=== PATIENT | male | born 1980 | race Caucasian/White ===

== ENCOUNTER 2017-03-01 16:14 | Emergency (ER) | payer OTHER ==
[~2017-03-01 16:14] MED LIST: KETO10TA PO
--- NOTE | 2017-03-01 17:02 | PHYS DOC ---
Past History Past Medical History: Diabetes, Hypertension, Other Past Surgical History: Other Smoking: Non-smoker Alcohol Use: None Drug Use: None Adult General Chief Complaint Chief Complaint: HEADACHE HPI HPI Patient is a 37 year old male who presents with complaint of high blood pressure for the past 3 days and headache for the past 2-3 months. Patient states that his primary concern is his blood pressure. Patient is currently on medication but is unable to identify the name of his medication. Patient states that he has been taking it regularly. Patient states that his headache symptoms have been ongoing and have not responded to [id number] medication. Patient has not seen a specialist for his headaches. Patient denies any chest pain, nausea, vomiting, vision loss, difficulty with speech or swallowing, or unilateral weakness associated with this headache. Patient currently rates his pain as 8 out of 10. Patient denies light sensitivity at this time. Review of Systems Review of Systems Constitutional: Denies fever or chills [] Eyes: Denies change in visual acuity, redness, or eye pain [] HENT: Denies nasal congestion or sore throat [] Respiratory: Denies cough or shortness of breath [] Cardiovascular: Denies chest pain or edema [] GI: Denies abdominal pain, nausea, vomiting, bloody stools or diarrhea [] : Denies dysuria or hematuria [] Musculoskeletal: Denies back pain or joint pain [] Integument: Denies rash or skin lesions [] Neurologic: Headache, denies focal weakness or sensory changes [] Current Medications Current Medications Current Medications Medications (Trade) Dose Ordered Sig/Mark Start Time Stop Time Status Last Admin Dose Admin Diphenhydramine HCl (Benadryl) 25 mg 1X ONCE 03/01/17 17:15 03/01/17 17:16 Fentanyl Citrate (Fentanyl 2ml Vial) 50 mcg PRN Q15MIN PRN 03/01/17 17:15 03/02/17 17:14 Metoclopramide HCl (Reglan) 10 mg 1X ONCE 03/01/17 17:15 03/01/17 17:16 Allergies Allergies Allergies Coded Allergies Type Severity Reaction Last Updated Verified No Known Drug Allergies 02/24/14 No Physical Exam Physical Exam Constitutional: Alert, obese, afebrile, appears in mild discomfort. [] HENT: Normocephalic, atraumatic, bilateral external ears normal, oropharynx moist, no oral exudates, nose normal. [] Eyes: PERRLA, EOMI, conjunctiva normal, no discharge. [] Neck: Normal range of motion, no tenderness, supple, no stridor. [] Cardiovascular:Heart rate regular rhythm, no murmur [] Lungs & Thorax: Bilateral breath sounds clear to auscultation [] Abdomen: Bowel sounds normal, soft, no tenderness, no masses, no pulsatile masses. [] Skin: Warm, dry, no erythema, no rash. [] Back: No tenderness, no CVA tenderness. [] Extremities: No tenderness, no cyanosis, no clubbing, ROM intact, no edema. [] Neurologic: Alert and oriented X 3, normal motor function, normal sensory function, no focal deficits noted. [] EKG EKG Interpreted by me: Heart rate 83, sinus rhythm, normal intervals, normal axis, no acute ST/T-wave abnormalities present [] Radiology/Procedures Radiology/Procedures Not performed [] Course & Med Decision Making Course & Med Decision Making Pertinent Labs and Imaging studies reviewed. (See chart for details) Patient was given Reglan, Benadryl and fentanyl. Patient was given 5 mg of oral lisinopril in the emergency department. Patient's lab work pending at time of sign out. Care of patient was signed over to Dr. Abbott at 1809. Report received from Dr Garcia at 1800 shift change. Pt presented initially with markedly elevate BP which has improved to 140's systolic. Labs unremarkable, pt continues to be asymptomatic. I discussed PCP follow up on Saturday for BP recheck and medication titration/adjustment if indicated. Also discussed PCP referral for outpatient workup chronic headaches. Pt expressed agreement/understanding with treatment plan. Dragon Disclaimer Dragon Disclaimer This chart was dictated in whole or in part using Voice Recognition software in a busy, high-work load, and often noisy Emergency Department environment. It may contain unintended and wholly unrecognized errors or omissions. Departure Time of Disposition: 18:47 Disposition: HOME, SELF-CARE Diagnosis: HTN uncontrolled, chronic headache Condition: IMPROVED Patient Instructions: General Headache Without Cause, [id number], Hypertension Referrals: GREGORY SIMPSON (PCP) Additional Instructions: Activity as tolerated. Continue current medications. OTC tylenol/ibuprofen as needed. Follow up with your doctor Saturday for recheck of BP and to discuss outpatient Neurology referral for chronic headaches. Return to ED with new or changing symptoms. Departure Departure: Impression: Primary Impression: Hypertension Additional Impression: Headache Disposition: HOME, SELF-CARE Condition: IMPROVED Referrals: GREGORY SIMPSON (PCP) Patient Instructions: General Headache Without Cause, [id number], Hypertension Additional Instructions: Activity as tolerated. Continue current medications. OTC tylenol/ibuprofen as needed. Follow up with your doctor Saturday for recheck of BP and to discuss outpatient Neurology referral for chronic headaches. Return to ED with new or changing symptoms. Problem Qualifiers Primary Impression: Hypertension Hypertension type: essential hypertension Qualified Codes: I10 - Essential ( primary) hypertension Additional Impression: Headache Headache type: unspecified Headache chronicity pattern: episodic headache Intractability: not intractable Qualified Codes: R51 - Headache LEDY GARCIA MD March 01, 2017 17:02 GUNJAN ABBOTT DO March 01, 2017 18:49
[2017-03-01] MEDS ORDERED: hydrALAZINE 20 MG/ML VIAL. IV ONE (17:15)
[2017-03-01] MEDS ORDERED: METOCLOPRAMIDE HCL 10 MG/2 ML VIAL. IV ONE (17:15)
[2017-03-01] MEDS ORDERED: fentaNYL PF 100 MCG/2 ML VIAL IV PRN (17:15)
[2017-03-01] MEDS ORDERED: diphenhydrAMINE 50 MG/ML VIAL IVP ONE (17:15)
[2017-03-01] MEDS ORDERED: LISINOPRIL 5 MG TABLET. ONE (17:47)
[2017-03-01] MEDS ORDERED: LISINOPRIL 5 MG TABLET. PO ONE (18:10)
[2017-03-01 18:12] LABS: BASO # 0.1 x10^3/uL (0.0-0.2); BASO % 1 % (0-3); EOS # 0.4 x10^3/uL (0.0-0.7); EOS % 5 % (0-3); HEMATOCRIT 44.8 % (39.0-53.0); HEMOGLOBIN 15.2 g/dL (13.0-17.5); LYMPH # 2.1 x10^3/uL (1.0-4.8); LYMPH % 26 % (24-48); MEAN CORPUSCULAR HEMOGLOBIN 29 pg (25-35); MEAN CORPUSCULAR HGB CONC 34 g/dL (31-37); MEAN CORPUSCULAR VOLUME 86 fL (79-100); MONO # 0.5 x10^3/uL (0.0-1.1); MONO % 6 % (0-9); NEUT % 63 % (31-73); PLATELET COUNT 163 x10^3/uL (140-400); RED BLOOD COUNT 5.21 x10^6/uL (4.30-5.70); RED CELL DISTRIBUTION WIDTH 13.5 % (11.5-14.5)
[2017-03-01 18:25] LABS: ALBUMIN 3.9 g/dL (3.4-5.0); ALBUMIN/GLOBULIN RATIO 1.1 (1.0-1.7); CALCIUM 8.8 mg/dL (8.5-10.1); CREATININE 1.1 mg/dL (0.7-1.3); GFR 75.3; POTASSIUM 3.6 mmol/L (3.5-5.1); TOTAL BILIRUBIN 0.5 mg/dL (0.2-1.0); TOTAL PROTEIN 7.3 g/dL (6.4-8.2)
[2017-03-01 19:00] VITALS: BP 145/92
--- NOTE | 2017-03-01 20:43 | EKG ---
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
== END 2017-03-01 19:02 | disposition home or self-care (01) ==
LOC: ER 16:14
DX: I10 Essential (primary) hypertension (principal); G89.29 Other chronic pain; R51 Headache; E10.65 Type 1 diabetes mellitus with hyperglycemia
CPT/HCPCS: 36415; 80053; 83735; 85027; 93005; 96374; 96375; 99285; J1200; J2765; J3010

== ENCOUNTER 2017-05-05 22:54 | Emergency (ER) | payer OTHER ==
[~2017-05-05] VITALS: Ht 182.9 cm; Wt 130.3 kg
[2017-05-05] MEDS ORDERED: NITROGLYCERIN SUBLINGUAL 0.4 MG BOTTLE OF 25. SL PRN (23:30)
--- NOTE | 2017-05-05 23:30 | PHYS DOC ---
Past History Past Medical History: Diabetes, GERD, Hypertension, Hypothyroid Past Surgical History: Tonsillectomy, Other Smoking: Non-smoker Alcohol Use: None Drug Use: Marijuana Adult General Chief Complaint Chief Complaint: chest pain HPI HPI Patient is a 37 year old male who presents with complaint of right-sided chest pain. Patient states that his symptoms have been constant over the past 2 days. Patient describes the pain as a pressure sensation. Patient rates his pain currently as 5 out of 10. Patient states that it remains in his right chest and states that occasionally he gets sharp pains in this area. Patient has history of hypertension. Patient's blood pressure at triage was noted to be significantly elevated. Patient states that he is compliant with his medication at home. Patient states that he has had multiple episodes of chest pain over the past several months. Patient states that the pain usually resolves after a few hours. Patient states that his current pain has not resolved since onset 2 days ago which is abnormal. Patient has mild nausea but no vomiting. Patient denies any exacerbating factors for his pain. Review of Systems Review of Systems Constitutional: Denies fever or chills [] Eyes: Denies change in visual acuity, redness, or eye pain [] HENT: Denies nasal congestion or sore throat [] Respiratory: Denies cough or shortness of breath [] Cardiovascular: Chest pain, denies edema [] GI: Mild nausea, denies abdominal pain, vomiting, bloody stools or diarrhea [] : Denies dysuria or hematuria [] Musculoskeletal: Denies back pain or joint pain [] Integument: Denies rash or skin lesions [] Neurologic: Denies headache, focal weakness or sensory changes [] Current Medications Current Medications Current Medications Medications (Trade) Dose Ordered Sig/Mark Start Time Stop Time Status Last Admin Dose Admin Aspirin (Children'S Aspirin) 324 mg 1X ONCE 05/05/17 23:30 05/05/17 23:31 UNV Nitroglycerin (Nitrostat) 0.4 mg PRN Q5MIN PRN 05/05/17 23:30 05/06/17 23:29 UNV Sodium Chloride 1,000 ml @ 1,000 mls/hr Q1H 05/05/17 23:25 05/06/17 00:24 UNV Allergies Allergies Allergies Coded Allergies Type Severity Reaction Last Updated Verified No Known Drug Allergies 4/30/14 No Physical Exam Physical Exam Constitutional: Alert, afebrile, appears in mild to moderate discomfort. [] HENT: Normocephalic, atraumatic, bilateral external ears normal, oropharynx moist, no oral exudates, nose normal. [] Eyes: PERRLA, EOMI, conjunctiva normal, no discharge. [] Neck: Normal range of motion, no tenderness, supple, no stridor. [] Cardiovascular:Heart rate regular rhythm, no murmur [] Lungs & Thorax: Bilateral breath sounds clear to auscultation [] Abdomen: Bowel sounds normal, soft, no tenderness, no masses, no pulsatile masses. [] Skin: Warm, dry, no erythema, no rash. [] Back: No tenderness, no CVA tenderness. [] Extremities: No tenderness, no cyanosis, no clubbing, ROM intact, no edema. [] Neurologic: Alert and oriented X 3, normal motor function, normal sensory function, no focal deficits noted. [] Current Patient Data Vital Signs Vital Signs Date Time Temp Pulse Resp B/P (MAP) Pulse Ox O2 Delivery O2 Flow Rate FiO2 05/05/17 23:44 101 153/104 05/05/17 22:55 98.3 18 94 Room Air EKG EKG Interpreted by me: Heart rate 78, sinus rhythm, leftward axis, no acute ST/T- wave abnormalities present [] Radiology/Procedures Radiology/Procedures One view AP chest x-ray interpreted by me: No infiltrate, no effusions, normal cardiac silhouette [] Course & Med Decision Making Course & Med Decision Making Pertinent Labs and Imaging studies reviewed. (See chart for details) Patient was treated with nitroglycerin and aspirin in the emergency department. Patient's blood pressure improved to 147/87. On reevaluation, patient states he is still having chest pressure at this time. Patient's initial lab work is nondiagnostic for etiology since pain. The patient will require admission to the hospital for further workup of chest pain and rule out myocardial ischemia. Initially when I told the patient the plan of care he was in agreement. For this reason I spoke with Dr. Clinton who initially accepted care patient in hospital. Upon reevaluation in the emergency department after I spoke with Dr. Clinton, I informed the patient that his testing was negative. He asked me how long he would need to stay in the hospital for rule out. I told him that he would need to stay overnight to have repeat cardiac enzyme testing as well as cardiology consult. The patient stated "I can't be here that long. I'm not going to stay." I asked the patient why and he stated "I have kids at home." I explained to the patient that he had undifferentiated chest pain with acute coronary syndrome as part of his differential diagnosis. If this were not diagnosed and patient's pain symptoms progress to heart attack this could be potentially catastrophic to the patient. The patient voiced understanding and stated that he did not want to stay in the hospital. He did acknowledge potential risk of or disability as a result of his choice rated the patient signed out AGAINST MEDICAL ADVICE. Patient left the emergency department in stable condition. The patient left before being able to receive any discharge paperwork. Dragon Disclaimer Dragon Disclaimer This chart was dictated in whole or in part using Voice Recognition software in a busy, high-work load, and often noisy Emergency Department environment. It may contain unintended and wholly unrecognized errors or omissions. Departure Departure: Impression: Primary Impression: Chest pain Additional Impression: Hypertension Disposition: 07 AGAINST MEDICAL ADVICE Condition: STABLE Referrals: GREGORY SIMPSON (PCP) Problem Qualifiers Primary Impression: Chest pain Chest pain type: unspecified Qualified Codes: R07.9 - Chest pain, unspecified Additional Impression: Hypertension Hypertension type: essential hypertension Qualified Codes: I10 - Essential ( primary) hypertension LEDY LUCAS MD May 05, 2017 23:30
[2017-05-05] MEDS ORDERED: ASPIRIN 81 MG TAB.CHEW PO ONE (23:45)
[2017-05-05] MEDS ORDERED: IV NORMAL SALINE 1,000ML 1,000 ML IV SCH (23:45)
--- NOTE | 2017-05-05 23:47 | EKG ---
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
[2017-05-05 23:49] LABS: BASO # 0.1 x10^3/uL (0.0-0.2); BASO % 1 % (0-3); EOS # 0.5 x10^3/uL (0.0-0.7); EOS % 5 % (0-3); HEMATOCRIT 42.5 % (39.0-53.0); HEMOGLOBIN 14.5 g/dL (13.0-17.5); LYMPH # 2.5 x10^3/uL (1.0-4.8); LYMPH % 29 % (24-48); MEAN CORPUSCULAR HEMOGLOBIN 29 pg (25-35); MEAN CORPUSCULAR HGB CONC 34 g/dL (31-37); MEAN CORPUSCULAR VOLUME 85 fL (79-100); MONO # 0.6 x10^3/uL (0.0-1.1); MONO % 8 % (0-9); NEUT # 4.9 x10^3uL (1.8-7.7); NEUT % 58 % (31-73); PLATELET COUNT 151 x10^3/uL (140-400); RED CELL DISTRIBUTION WIDTH 13.9 % (11.5-14.5); WHITE BLOOD COUNT 8.6 x10^3/uL (4.0-11.0)
[2017-05-06 00:08] LABS: ALBUMIN 3.6 g/dL (3.4-5.0); ALK PHOS 190 U/L (46-116); ALT (SGPT) 50 U/L (16-63); ANION GAP 8 (6-14); AST (SGOT) 22 U/L (15-37); BLOOD UREA NITROGEN 15 mg/dL (8-26); BUN/CREATININE RATIO 13 (6-20); CALCIUM 8.5 mg/dL (8.5-10.1); CARBON DIOXIDE 28 mmol/L (21-32); CHLORIDE 106 mmol/L (98-107); CREATINE KINASE 30 U/L (39-308); CREATININE 1.2 mg/dL (0.7-1.3); GFR 68.1; GLUCOSE 112 mg/dL (70-99); MAGNESIUM 2.2 mg/dL (1.8-2.4); POTASSIUM 3.6 mmol/L (3.5-5.1); SODIUM 142 mmol/L (136-145); TOTAL BILIRUBIN 0.5 mg/dL (0.2-1.0); TOTAL PROTEIN 7.1 g/dL (6.4-8.2)
[2017-05-06] MEDS ORDERED: IV NORMAL SALINE 1,000ML 1,000 ML IV SCH (00:29)
[2017-05-06] MEDS ORDERED: hydrALAZINE 20 MG/ML VIAL. IV PRN (00:30)
[2017-05-06] MEDS ORDERED: fentaNYL PF 100 MCG/2 ML VIAL IV PRN (00:30)
[2017-05-06] MEDS ORDERED: ONDANSETRON PF 4 MG/2 ML VIAL. IV PRN (00:30)
[2017-05-06 00:40] VITALS: BP 147/84
--- NOTE | 2017-05-06 07:18 | RAD ---
Portable chest, 05/05/2017: History: Chest pain Comparison is made to a study from 02/24/2014. The heart size and pulmonary vascularity are normal. There is minimal linear scarring in the right base. No acute infiltrate is seen. There is no evidence of pleural fluid. IMPRESSION: No acute cardiopulmonary abnormality is detected.
== END 2017-05-06 00:40 | disposition left against medical advice (07) ==
LOC: ER 22:54
DX: I10 Essential (primary) hypertension (principal); E11.9 Type 2 diabetes mellitus without complications; E03.9 Hypothyroidism, unspecified; K21.9 Gastro-esophageal reflux disease without esophagitis; F12.10 Cannabis abuse, uncomplicated
CPT/HCPCS: 36415; 71010; 80053; 82553; 83735; 83880; 84484; 85027; 93005; 96360; 99285-25; J7030

== ENCOUNTER 2019-01-05 12:47 | Emergency (ER) | payer OTHER ==
[~2019-01-05] VITALS: Ht 182.9 cm; Wt 141.5 kg
--- NOTE | 2019-01-05 13:23 | PHYS DOC ---
Past History Past Medical History: Diabetes, GERD, Hypertension, Hypothyroid Past Surgical History: Tonsillectomy, Other Smoking: Non-smoker Alcohol Use: None Drug Use: Marijuana Adult General Chief Complaint Chief Complaint: bloody urine HPI HPI Patient is a 39 year old male who presents with complaining of bloody urine. Patient states he has had episodes of hematuria with dark yellow colored urine since last night without dysuria, abdominal pain, nausea and vomiting, fever and chills. Patient states he had another episode of hematuria couple days ago that resolved spontaneously. Patient denies history of kidney stone, easy bruising and bleeding, dysuria and urinary frequency. Patient state hematuria getting better this morning. Review of Systems Review of Systems Constitutional: Denies fever or chills [] Eyes: Denies change in visual acuity, redness, or eye pain [] HENT: Denies nasal congestion or sore throat [] Respiratory: Denies cough or shortness of breath [] Cardiovascular: No additional information not addressed in HPI [] GI: Denies abdominal pain, nausea, vomiting, bloody stools or diarrhea [] : Denies dysuria, reports hematuria [] Musculoskeletal: Denies back pain or joint pain [] Integument: Denies rash or skin lesions [] Neurologic: Denies headache, focal weakness or sensory changes [] Endocrine: Denies polyuria or polydipsia [] All other systems were reviewed and found to be within normal limits, except as documented in this note. Allergies Allergies Allergies Coded Allergies Type Severity Reaction Last Updated Verified No Known Drug Allergies 02/24/14 No Physical Exam Physical Exam Constitutional: Well developed, well nourished, no acute distress, non-toxic appearance, morbidly obese. [] HENT: Normocephalic, atraumatic Eyes: PERRLA, EOMI, conjunctiva normal, no discharge. [] Neck: Normal range of motion, no tenderness, supple, no stridor. [] Cardiovascular:Heart rate regular rhythm, no murmur [] Lungs & Thorax: Bilateral breath sounds clear to auscultation [] Abdomen: Bowel sounds normal, soft, no tenderness, no masses, no pulsatile masses. [] Skin: Warm, dry, no erythema, no rash. [] Back: No tenderness, no CVA tenderness. [] Extremities: No tenderness, no cyanosis, no clubbing, ROM intact, no edema. [] Neurologic: Alert and oriented X 3, normal motor function, normal sensory function, no focal deficits noted. [] Psychologic: Affect normal, judgement normal, mood normal. [] EKG EKG [] Radiology/Procedures Radiology/Procedures [address] [id number] IMAGING REPORT Signed PATIENT: DELIO YOUSSEF ACCOUNT: [id number] : 1980 LOCATION: ER AGE: 39 SEX: M EXAM STATUS: REG ER ORD. PHYSICIAN: SAVANNAH CASTRO MD REASON: hematuria PROCEDURE: CT ABDOMEN PELVIS WO CONTRAST CT abdomen pelvis without contrast dated 01/05/2019. Comparison made to 02/19/2015. CLINICAL INDICATION: Hematuria. Trouble urinating for 2 days. TECHNIQUE: Contiguous axial imaging of the abdomen and pelvis performed without the administration of IV or oral contrast. One or more of the following individualized dose reduction techniques were utilized for this examination: 1. Automated exposure control 2. Adjustment of the mA and/or kV according to patient size 3. Use of iterative reconstruction technique. FINDINGS: Limited images of lung bases are clear. Heart size within normal limits. No pleural or pericardial effusion. Solid abdominal viscera not well evaluated in the absence of contrast material. Mild low-density of the liver suggesting fatty infiltration. The spleen is mildly enlarged. Pancreas, adrenal glands and gallbladder are unremarkable. Kidneys are symmetric in size and attenuation. No calcific renal or ureteral stone. No hydronephrosis. No inflammatory changes in the perinephric fat. Small umbilical hernia containing only fat. Unopacified GI tract normal in caliber and contour. No focal bowel wall thickening. No inflammatory stranding in the mesentery. Appendix normal in caliber. No ascites or lymphadenopathy. Abdominal aorta normal in caliber. Bone windows show no acute findings. Multilevel spondylosis. IMPRESSION: 1. No acute abnormality of abdomen or pelvis. No renal stone or hydronephrosis. 2. Mild fatty infiltration of the liver. 3. Mild splenomegaly. 4. Normal appendix. 5. Small umbilical hernia containing only fat. Electronically signed by: Kevin Jones MD (01/05/2019 1:46 PM) [facility] DICTATED AND SIGNED BY: KEVIN JONES MD DATE: 01/05/19 2499 CC: SAVANNAH CASTRO MD; GREGORY SIMPSON ~ Course & Med Decision Making Course & Med Decision Making Pertinent Labs and Imaging studies reviewed. (See chart for details) discharge: I've spoken with the patient and/or caregivers. I've explained the patient's condition, diagnosis and treatment plan based on information available to me at this time. I've answered the patient's and/or caregivers questions and addressed any concerns. The patient and/or caregivers have a good understanding the patient's diagnosis, condition and treatment plan as can be expected at this point. Vital signs have been stabilized. The patient's condition is stable for discharge from the emergency department. The patient will pursue further outpatient evaluation with her primary care provider or other designated consulting physician as outlined in the discharge instructions. Patient and/or caregivers are agreeable to this plan of care and follow-up instructions have been explained in detail. The patient and/or caregivers have received these instructions in written format and expressed understanding of these discharge instructions. The patient and her caregivers are aware that if any significant change in condition or worsening of symptoms should prompt him to immediately return to this of the closest emergency department. If an emergent department is not readily available I would encourage him to call 911. Dashaon Disclaimer Dashaon Disclaimer This electronic medical record was generated, in whole or in part, using a voice recognition dictation system. Departure Departure: Impression: Primary Impression: Hematuria Additional Impression: Morbid obesity Disposition: HOME, SELF-CARE (at 1402) Condition: STABLE Referrals: GREGORY SIMPSON (PCP) NAT IVEY Patient Instructions: Hematuria, Adult Additional Instructions: Drink plenty of liquids Follow-up with your primary care physician in 3-5 days Return to ER if not getting better Follow-up with on-call urologist in 3-5 days Scripts Ciprofloxacin Hcl (CIPRO) 250 Mg Tablet 1 TAB PO BID for urinary tract infection, #6 TAB Prov: SAVANNAH CASTRO MD 01/05/19 Problem Qualifiers SAVANNAH CASTRO MD Jan 05, 2019 13:23
--- NOTE | 2019-01-05 13:49 | RAD ---
CT abdomen pelvis without contrast dated 01/05/2019. Comparison made to 02/19/2015. CLINICAL INDICATION: Hematuria. Trouble urinating for 2 days. TECHNIQUE: Contiguous axial imaging of the abdomen and pelvis performed without the administration of IV or oral contrast. One or more of the following individualized dose reduction techniques were utilized for this examination: 1. Automated exposure control 2. Adjustment of the mA and/or kV according to patient size 3. Use of iterative reconstruction technique. FINDINGS: Limited images of lung bases are clear. Heart size within normal limits. No pleural or pericardial effusion. Solid abdominal viscera not well evaluated in the absence of contrast material. Mild low-density of the liver suggesting fatty infiltration. The spleen is mildly enlarged. Pancreas, adrenal glands and gallbladder are unremarkable. Kidneys are symmetric in size and attenuation. No calcific renal or ureteral stone. No hydronephrosis. No inflammatory changes in the perinephric fat. Small umbilical hernia containing only fat. Unopacified GI tract normal in caliber and contour. No focal bowel wall thickening. No inflammatory stranding in the mesentery. Appendix normal in caliber. No ascites or lymphadenopathy. Abdominal aorta normal in caliber. Bone windows show no acute findings. Multilevel spondylosis. IMPRESSION: 1. No acute abnormality of abdomen or pelvis. No renal stone or hydronephrosis. 2. Mild fatty infiltration of the liver. 3. Mild splenomegaly. 4. Normal appendix. 5. Small umbilical hernia containing only fat. Electronically signed by: Kevin Jones MD (01/05/2019 1:46 PM) [facility]
[2019-01-05] MEDS ORDERED: CIPR250T30 PO (14:04)
[2019-01-05 14:05] LABS: BACTERIA,URINE FEW /HPF (0-FEW); BILIRUBIN,URINE NEG (NEG); CLARITY,URINE CLOUDY; COLOR,URINE AMBER; GLUCOSE,URINE NEG (NEG); NITRITE,URINE POS (NEG); RBC,URINE 20-40 /HPF (0-2); SQUAMOUS EPITHELIAL CELL,UR FEW /LPF; UROBILINOGEN,URINE 0.2 mg/dL (0.2 mg/dL)
[2019-01-05 15:49] VITALS: BP 135/82
== END 2019-01-05 14:15 | disposition home or self-care (01) ==
LOC: ER 12:47
DX: R31.9 Hematuria, unspecified (principal); K76.0 Fatty (change of) liver, not elsewhere classified; R16.1 Splenomegaly, not elsewhere classified; K42.9 Umbilical hernia without obstruction or gangrene; E11.9 Type 2 diabetes mellitus without complications; K21.9 Gastro-esophageal reflux disease without esophagitis; I10 Essential (primary) hypertension; E03.9 Hypothyroidism, unspecified; E66.01 Morbid (severe) obesity due to excess calories; Z68.41 Body mass index [BMI] 40.0-44.9, adult
CPT/HCPCS: 74176; 81001; 87086; 87186; 99284

== ENCOUNTER → 2019-11-12 | Outpatient (CLI) | payer OTHER ==
[~2019-11-12] MED LIST changes: +CIPR250T30 PO
--- NOTE | 2019-11-12 12:19 | RAD ---
EXAM: Lumbar spine CT without contrast. HISTORY: Lumbar radiculopathy. TECHNIQUE: Computed tomographic images of the lumbar spine were obtained without contrast. Multiplanar reformatting was performed. *One or more of the following individualized dose reduction techniques were utilized for this examination: 1. Automated exposure control. 2. Adjustment of the mA and/or kV according to patient size. 3. Use of iterative reconstruction technique. COMPARISON: None. FINDINGS: There is mild S-shaped thoracolumbar curvature without significant scoliosis. There is minimal retrolisthesis of L4 on L5 and L5 on S1. There is degenerative endplate remodeling and Schmorl's node formation at the majority of the lumbar and lower thoracic levels. No fracture is seen. No suspicious osseous lesion is seen. There is suspected hepatosplenomegaly and hepatic steatosis, partially included on the [id number]. 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 There is a benign bone island within the left L4 lamina and transverse process. At L1-L2, there is endplate remodeling. There is minimal left facet arthropathy. There is no stenosis. At L2-L3, there is endplate remodeling. There is no stenosis. At L3-L4, there is endplate remodeling. There is no stenosis. At L4-L5, there is endplate remodeling. There is mild left facet arthropathy spurring along the left superior articular facet contributing to mild left foraminal stenosis. At L5-S1, there are right greater than left foraminal to extra foraminal disc protrusions and osteophyte complexes superimposed on a disc bulge and endplate remodeling. There is mild to moderate bilateral foraminal stenosis. IMPRESSION: 1. Multilevel degenerative change involving the lumbar spine, described in detail above. This results in mild left foraminal stenosis at L4-L5 and mild to moderate bilateral foraminal stenosis at L5-S1. 2. Suspected hepatosplenomegaly and hepatic steatosis, partially included on the aolio-no-wapu. Electronically signed by: Ana Marie MD (11/12/2019 12:17 PM) [place] [id number]
== END | disposition home or self-care (01) ==
LOC: CT 11:23
PROVIDERS: ATTEND Psychiatry & Neurology Neurology
DX: M51.17 Intervertebral disc disorders with radiculopathy, lumbosacral region (principal); M48.061 Spinal stenosis, lumbar region without neurogenic claudication; M12.88 Other specific arthropathies, not elsewhere classified, other specified site; M25.78 Osteophyte, vertebrae; M51.46 Schmorl's nodes, lumbar region
CPT/HCPCS: 72131

== ENCOUNTER 2020-10-05 09:10 | Emergency (ER) | payer OTHER ==
[~2020-10-05] VITALS: Ht 182.9 cm; Wt 150.0 kg
--- NOTE | 2020-10-05 09:27 | PHYS DOC ---
Past History Past Medical History: Diabetes, GERD, Hypertension, Hypothyroid Past Surgical History: Tonsillectomy, Other Smoking: Non-smoker Alcohol Use: None Drug Use: Marijuana General Adult EDM: Chief Complaint: LOWER BACK PAIN OR INJURY HPI: HPI: 40 yo M PMH DM, HTN, gerd and hypothyroidism, presents to the ed with c/p midline lower, nonradiating, sharp back pain that started Saturday afternoon after he tripped while putting a grocery cart away. Patient reports he fell forward and had some mild back pain at that time (no head injury or loc). When he woke up his pain was much more severe, worse with sitting and standing upright, feels better when lying flat. No relief with Tylenol, ibuprofen and Flexeril 10 mg. Reports he's had this pain before but doesn't feel like he can go to work. CT abd/pelvis 2019 w/multilevel DDD of the lumbar spine, and bl foraminal stenosis at L5-S1. No history of IV drug use or associated fever. No history of back surgery or MRI. No associated radiculopathy, saddle anesthesia, urinary bowel retention or incontinence. Review of Systems: Review of Systems: Constitutional: Well developed, well nourished, no acute distress, non-toxic appearance. HENT: Normocephalic, atraumatic, Eyes: EOMI, conjunctiva normal, no discharge. Neck: Normal range of motion, supple, Cardiovascular: S1/2 present, regular rhythm Lungs & Thorax: Speaking in full sentences, bilateral equal chest rise, no tachypnea or increased work of breathing Abdomen: soft, no tenderness, obese abdomen Skin: Warm, dry, no erythema, no rash. [] Back: No reproducible ttp, no midline step offs, no rash, location of pain in L3-S1, no CVA tenderness. [] Extremities: No tenderness, no cyanosis, no edema Neurologic: Alert and oriented X 3, normal motor function, normal sensory function, no focal deficits noted. [] Psychologic: Affect normal, judgement normal, mood normal. [] Allergies: Allergies: Allergies Coded Allergies Type Severity Reaction Last Updated Verified No Known Drug Allergies 02/24/14 No Physical Exam: PE: Constitutional: Well developed, well nourished, no acute distress, non-toxic appearance. [] HENT: Normocephalic, atraumatic, bilateral external ears normal, oropharynx moist, no oral exudates, nose normal. [] Eyes: PERRLA, EOMI, conjunctiva normal, no discharge. [] Neck: Normal range of motion, no tenderness, supple, no stridor. [] Cardiovascular:Heart rate regular rhythm, no murmur [] Lungs & Thorax: Bilateral breath sounds clear to auscultation [] Abdomen: Bowel sounds normal, soft, no tenderness, no masses, no pulsatile masses. [] Skin: Warm, dry, no erythema, no rash. [] Back: No tenderness, no CVA tenderness. [] Extremities: No tenderness, no cyanosis, no clubbing, ROM intact, no edema. [] Neurologic: Alert and oriented X 3, normal motor function, normal sensory function, no focal deficits noted. [] Psychologic: Affect normal, judgement normal, mood normal. [] EKG: EKG: [] Radiology/Procedures: Radiology/Procedures: [] Heart Score: Risk Factors: Risk Factors: DM, Current or recent (<one month) smoker, HTN, HLP, family history of CAD, obesity. Risk Scores: Score 0 - 3: 2.5% MACE over next 6 weeks - Discharge Home Score 4 - 6: 20.3% MACE over next 6 weeks - Admit for Clinical Observation Score 7 - 10: 72.7% MACE over next 6 weeks - Early Invasive Strategies Course & Med Decision Making: Course & Med Decision Making Pertinent Labs and Imaging studies reviewed. (See chart for details) Suspect MSK vs disc herniation, atraumatic back pain exacerbation, in the absence of neurologic deficits or radiculopathy. Will dc home with medications, rice instructions and conservative management. Work note given. Strict ED return precautions were given for saddle anesthesia, fever, urine or bowel retention or incontinence or neurologic deficits. Encouraged urgent outpatient follow-up with PMD (especially if pt requires stronger pain medications) and orthopedic follow-up to consider MRI. Life-threatening processes were considered but are low suspicion at this time, given history and physical exam. Pt was educated on all prescription medications and adverse effects. All patient's questions were answered and pt was stable at time of discharge. Life/limb-threatening differential includes but is not limited to, aortic dissection/aneurysm, cauda equina syndrome, transverse myelitis, spinal cord compression, epidural abscess or hematoma, osteomyelitis, disc herniation, surgical abdomen, stable or unstable fracture, renal/ureteral colic, sepsis, musculoskeletal injury, traumatic injury, intraabdominal or pelvic bleeding. I spoken with the patient and her caregivers. I explained the patient's condition, diagnoses and treatment plan based on the information available to me at this time. I have answered the patient and her caregiver's questions and addressed any concerns. The patient and her caregivers have a good understanding of patient's diagnosis, condition and treatment plan as can be expected at this point. Vital signs have been stable. Patient's condition is stable and appropriate for discharge from the emergency department. Patient will pursue further outpatient evaluation with primary care physician or other designated or consulting physician as outlined in the discharge instructions. The patient and/or caregivers are agreeable to this plan of care and follow-up instructions have been explained in detail. The patient and/or caregivers have received these instructions in written form and have expressed an understanding of the discharge instructions. The patient and/or caregivers are aware that any significant change of condition or worsening of symptoms should prompt immediate return to this or the closest emergency department or call to [id number] Disclaimer: Anay Disclaimer: This electronic medical record was generated, in whole or in part, using a voice recognition dictation system. Departure Departure: Impression: Primary Impression: Back pain, lumbosacral Disposition: 01 DC HOME SELF CARE/HOMELESS Condition: STABLE Referrals: GREGORY SIMPSON (PCP) in 5-7 days for re-evaluation Patient Instructions: Back Pain, Adult, Degenerative Disk Disease Additional Instructions: FOLLOW UP WITH ORTHOPEDICS: [facility] [address] [address] EMERGENCY DEPARTMENT GENERAL DISCHARGE INSTRUCTIONS Thank you for coming to [facility] (ED) today and trusting us with you care. We trust that you had a positivie experience in our Emergency Department. If you wish to speak to the department management, you may call the director at [phone]. YOUR FOLLOW UP INSTRUCTIONS ARE FOLLOWS: 1. Do you have a private Doctor? If you do not have a private doctor, please ask for a resource list of physicians or clinics that may be able to assist you with follow up care. 2. The Emergency Physician has interpreted your x-rays. The X-Ray specialist will also review them. If there is a change in the findings, you will be notified in 48 hours when at all possible. 3. A lab test or culture has been done, your results will be reviewed and you will be notified if you need a change in treatment. ADDITIONAL INSTRUCTIONS AND INFORMATION: 1. Your care today has been supervised by a physician who is specially trained in emergency care. Many problems require more than one evaluation for a complete diagnosis and treatment. We recommend that you schedule your follow up appointment as recommended to ensure complete treatment of you illness or injury. If you are unable to obtain follow up care and continue to have a problem, or if your condition worsens, we recommend that you return to the ED. 2. We are not able to safely determine your condition over the phone nor are we able to give sound medical advice over the phone. For these safety reasons, if you call for medical advice we will ask you to come to the ED for further evaluation. 3. If you have any questions regarding these discharge instructions please call the ED at [phone]. SAFETY INFORMATION: In the interest of safety, wellness, and injury prevention; we encourage you to wear your sealbelt, if you smoke; quite smoking, and we encourage family to use a protective helmet for bicycling and other sporting events that present an increased risk for head injury. IF YOUR SYMPTOMS WORSEN OR NEW SYMPTOMS DEVELOP, OR YOU HAVE CONCERNS ABOUT YOUR CONDITION; OR IF YOUR CONDITION WORSENS WHILE YOU ARE WAITING FOR YOUR FOLLOW UP APPOINTMENT; EITHER CONTACT YOUR PRIMARY CARE DOCTOR, THE PHYSICIAN WHOSE NAME AND NUMBER YOU WERE GIVEN, OR RETURN TO THE ED IMMEDIATELY. Scripts Lidocaine/Menthol (LIDOPATCH) 1 Each Adh..patch 1 KATE TP DAILY for pain for 5 Days, #5 EACH 0 Refills Apply 1 patch daily. Remove after 12 hours. Prov: LAZARO ALY DO 10/05/20 Methocarbamol (ROBAXIN-750) 750 Mg Tablet 1 TAB PO TID PRN for back pain for 10 Days, #30 TAB 0 Refills Prov: LAZARO ALY DO 10/05/20 LAZARO ALY DO Oct 05, 2020 09:27
[2020-10-05 09:32] VITALS: BP 186/90
[2020-10-05] MEDS ORDERED: LIDO1ADH TP (09:38)
[2020-10-05] MEDS ORDERED: METH-38 PO (09:38)
[2020-10-05] MEDS: HYDROcodone/APAP 10/325 1 TAB TABLET PO ONE (09:54)
== END 2020-10-05 10:01 | disposition home or self-care (01) ==
LOC: ER 09:10
DX: M54.5 Low back pain (principal); G89.11 Acute pain due to trauma; I10 Essential (primary) hypertension; E03.9 Hypothyroidism, unspecified; K21.9 Gastro-esophageal reflux disease without esophagitis; E11.9 Type 2 diabetes mellitus without complications; W01.198A Fall on same level from slipping, tripping and stumbling with subsequent striking against other object, initial encounter; Y93.89 Activity, other specified; Y92.89 Other specified places as the place of occurrence of the external cause; Y99.8 Other external cause status
CPT/HCPCS: 99283

== ENCOUNTER 2021-06-04 19:07 | Emergency (ER) | payer OTHER ==
[~2021-06-04] VITALS: Ht 182.9 cm; Wt 149.4 kg
[~2021-06-04 19:07] MED LIST changes: +LIDO1ADH TP; +METH-38 PO
--- NOTE | 2021-06-04 19:36 | PHYS DOC ---
Past History Past Medical History: Diabetes, GERD, Hypertension, Hypothyroid, Other Additional Past Medical Histor: back pain Past Surgical History: Tonsillectomy, Other Additional Past Surgical Histo: ACL Smoking: Non-smoker Alcohol Use: None Drug Use: Marijuana General Adult EDM: Chief Complaint: ALLERGIC REACTION HPI: HPI: ".. I having an allergic reaction.." "... or something.. I woke up with the bite by something on my Lt abdomen.. and then at work my Lt. foot and ankles swelled up and started itching... : Patient is a 41 year old male who presents with above hx and complaints of allergic reaction. Patient has approximately 8 x 6 cm area erythema left abdomen with a central bite jolene. Patient also has inflammation and possible bite left ankle and foot area. Surrounding area of ankle and foot are swollen and erythemic. Appear almost cellulitic. Patient up-to-date with vaccinations. No recent travel. No specific ill contacts. No history immunosuppression. Patient does have a history of diabetes but Accu-Cheks at home was less than 120. The patient normally follows with Dr. Bell and Dr. Simpson Review of Systems: Review of Systems: Constitutional: Complains of fever or chills Eyes: Denies change in visual acuity HENT: Denies nasal congestion or sore throat Respiratory: Denies cough or shortness of breath Cardiovascular: Denies chest pain or edema GI: Denies abdominal pain, nausea, vomiting, bloody stools or diarrhea : Denies dysuria Musculoskeletal: Denies back pain or joint pain Integument: Complains of insect bite Neurologic: Denies headache, focal weakness or sensory changes Endocrine: Denies polyuria or polydipsia Lymphatic: Denies swollen glands Psychiatric: Denies depression or anxiety Family History: Family History: Noncontributory Allergies: Allergies: Allergies Coded Allergies Type Severity Reaction Last Updated Verified No Known Drug Allergies 02/24/14 No Physical Exam: PE: Constitutional: Moderate acute distress, non-toxic appearance. [] HENT: Normocephalic, atraumatic, bilateral external ears normal, oropharynx moist, no oral exudates, nose normal. [] Eyes: PERRLA, EOMI, conjunctiva normal, no discharge. [] Neck: Normal range of motion, no tenderness, supple, no stridor. [] Cardiovascular:Heart rate regular rhythm, no murmur [] Lungs & Thorax: Bilateral breath sounds equal at apex on auscultation [] Abdomen: Bowel sounds normal, soft, what appears to be insect bite approximate 8 x 6 cm with central bite jolene and tenderness on the left abdomen wall, no masses, no pulsatile masses. Obese Skin: Warm, dry, erythemic rash of left foot and ankle with insect bite Back: No tenderness, no CVA tenderness. [] Extremities: No tenderness, no cyanosis, no clubbing, ROM intact, ankle edema. [] Right knee surgery scar. No cording appreciated Neurologic: Alert and oriented X 3, normal motor function, normal sensory fu nction, no focal deficits noted. Psychologic: Affect anxious, judgement normal, mood normal. [] EKG: EKG: [] Radiology/Procedures: Radiology/Procedures: [] Heart Score: C/O Chest Pain: N/A Risk Factors: Risk Factors: DM, Current or recent (<one month) smoker, HTN, HLP, family history of CAD, obesity. Risk Scores: Score 0 - 3: 2.5% MACE over next 6 weeks - Discharge Home Score 4 - 6: 20.3% MACE over next 6 weeks - Admit for Clinical Observation Score 7 - 10: 72.7% MACE over next 6 weeks - Early Invasive Strategies Course & Med Decision Making: Course & Med Decision Making Pertinent Labs and Imaging studies reviewed. (See chart for details) Patient use warm moist compresses of salt water or Epson salts 4 times a day. Then massage areas of bite with Polysporin afterwards. Patient take Bactrim DS twice a day. Risks with diabetes discussed with patient however if this is infectious would be drug of choice. Monitor blood sugars closely. Take Pepcid twice a day. Take Benadryl 25 to 50 mg 4 times a day for itching. Follow-up primary care. Return if any concerns. Impression: 1. Insect bites 2. Possible allergic reaction 3. Cellulitis 4. History of diabetes [] Dragon Disclaimer: Dragtoni Disclaimer: This electronic medical record was generated, in whole or in part, using a voice recognition dictation system. Departure Departure: Referrals: GREGORY SIMPSON (PCP) Scripts Sulfamethoxazole/Trimethoprim (BACTRIM DS TABLET) 1 Each Tablet 1 TAB PO BID for Cellulitis for 10 Days, #20 TAB 0 Refills Prov: JESSICA ALVARENGA MD 06/04/21 Dragon Disclaimer This chart was dictated in whole or in part using Voice Recognition software in a busy, high-work load, and often noisy Emergency Department environment. It may contain unintended and wholly unrecognized errors or omissions. Dragon Disclaimer This chart was dictated in whole or in part using Voice Recognition software in a busy, high-work load, and often noisy Emergency Department environment. It may contain unintended and wholly unrecognized errors or omissions. JESSICA ALVARENGA MD Jun 04, 2021 19:36
[2021-06-04] MEDS ORDERED: predniSONE 10 MG TABLET. PO ONE (20:00)
[2021-06-04] MEDS ORDERED: SMZ/TMP 800/160MG TABLET. PO ONE (20:00)
[2021-06-04] MEDS ORDERED: FAMOTIDINE 20 MG TABLET PO ONE (20:00)
[2021-06-04] MEDS ORDERED: SULF1TAB24 PO (20:02)
[2021-06-04 20:03] VITALS: BP 123/88
== END 2021-06-04 20:30 | disposition home or self-care (01) ==
LOC: ER 19:07
DX: L03.311 Cellulitis of abdominal wall (principal); S30.861A Insect bite (nonvenomous) of abdominal wall, initial encounter; E11.9 Type 2 diabetes mellitus without complications; K21.9 Gastro-esophageal reflux disease without esophagitis; I10 Essential (primary) hypertension; F12.10 Cannabis abuse, uncomplicated; W57.XXXA Bitten or stung by nonvenomous insect and other nonvenomous arthropods, initial encounter; Y93.89 Activity, other specified; Y92.89 Other specified places as the place of occurrence of the external cause; Y99.8 Other external cause status
CPT/HCPCS: 82947; 99284; J7512